=== PATIENT | male | born 1965 | race Caucasian/White ===

== ENCOUNTER 2018-05-22 14:44 | Emergency (ER) | payer SELFPAY ==
[~2018-05-22] VITALS: Ht 172.7 cm; Wt 70.3 kg
[2018-05-22 15:04] VITALS: BP 133/86; PULSE 87; RESP 18; TEMP 98.2; O2SAT 95
[2018-05-22] MEDS ORDERED: ORPHENADRINE INJ 60 MG/2 ML AMP IM ONE (16:15)
[2018-05-22] MEDS ORDERED: traMADol HCL 50 MG TAB PO ONE (16:15)
[2018-05-22] MEDS ORDERED: MEDR4PAK PO (16:18)
[2018-05-22] MEDS ORDERED: CYCL10TA PO (16:18)
[2018-05-22] MEDS ORDERED: NAPR500T2 PO (16:18)
--- NOTE | 2018-05-22 16:19 | PD ---
HPI Chief Complaint: Back/ Neck Pain or Injury Time Seen by Provider: 15:41 Travel History International Travel<30 days: No Contact w/Intl Traveler<30days: No Traveled to known affect area: No History of Present Illness HPI 52-year-old male presents to the emergency department with complaint of left lower back pain that radiates down his leg since yesterday after picking up a heavy object. He is also complaining of numbness and tingling from his back all the way down to his foot. Denies back pain like this before. Denies history of chronic back pain. Denies encopresis, incontinence, saddle anesthesias. Denies fever, vomiting, abdominal pain. Denies IV drug use or cancer. Denies loss of sensation, decreased range of motion, decreased strength to the affected extremity. Is ambulatory with a limp to the left lower extremity. Has been taking ibuprofen for symptom management. Rates pain 10/10 with sitting. Rates pain 5/10 when he lies down or stands up or better when he lays flat or stands up straight. Worse with sitting and movement. No primary care provider. Denies significant past medical history. Allergies to Toradol. Has no other medical complaints. No other modifying factors or associated signs and symptoms per [facility] Social History Alcohol Use: No Tobacco Use: Yes (1 ppd) Substance Use: Yes Allergies-Medications (Allergen,Severity, Reaction): Coded Allergies: No Known Allergies (Verified Allergy, Unknown, 05/22/18) Reported Meds & Prescriptions Reported Meds & Active Scripts Active Flexeril (Cyclobenzaprine HCl) 10 Mg Tab 10 Mg PO TID PRN Medrol Dosepak (Methylprednisolone) 4 Mg Dspk 4 Mg PO DIRECTED Per Pharmacist direction Naproxen 500 Mg Tab 500 Mg PO BID PRN Review of Systems Except as stated in HPI: all other systems reviewed are Neg Physical Exam Narrative GENERAL: Well-nourished, well-developed man patient, in no acute distress; afebrile, nontoxic-appearing SKIN: Warm and dry. HEAD: Atraumatic. Normocephalic. EYES: Pupils equal and round. No scleral icterus. No injection or drainage. ENT: Mucosa pink and moist. Airway patent. NECK: Trachea midline. CARDIOVASCULAR: Regular rate. RESPIRATORY: No accessory muscle use. GASTROINTESTINAL: Flat. MUSCULOSKELETAL: Bilateral lower extremities supple and non-tense with 2+ pedal pulses and sensory intact; with full range of motion and 5/5 strength; patient is missing 4 toes to the left foot and 3 toes to the right foot. 2+ DTRs bilaterally. Active dorsiflexion and extension of bilateral feet. Left straight leg raise is positive for low back pain. Ambulatory in room with a limp to the left lower extremity. Sitting up in bed at 90. No obvious deformities. No clubbing. No cyanosis. No edema. BACK: No midline point tenderness on palpation of the lumbar spine. Tenderness on palpation of left lumbar iliosacral area. No obvious deformities. NEUROLOGICAL: Awake and alert. Oriented 3. No obvious cranial nerve deficits. Motor grossly within normal limits. Normal speech. Moves all extremities. 5/5 strength to all extremities. Sensory intact. PSYCHIATRIC: Appropriate mood and affect; insight and judgment normal. Data Data Last Documented VS Vital Signs Date Time Temp Pulse Resp B/P (MAP) Pulse Ox O2 Delivery O2 Flow Rate FiO2 05/22/18 15:04 98.2 87 18 133/86 (102) 95 Orders Orders Tramadol (Ultram) (05/22/18 16:15) Orphenadrine Inj (Norflex Inj) (05/22/18 16:15) Ed Discharge Order (05/22/18 16:20) MDM Medical Decision Making Medical Screen Exam Complete: Yes Emergency Medical Condition: Yes Medical Record Reviewed: Yes Differential Diagnosis Low back strain, muscle strain, muscle spasm, sciatica, lumbar radiculopathy Narrative Course 52-year-old male with left-sided low back pain with left-sided sciatic and strain of the muscle of the lower back. Neuro exam is unremarkable. Denies encopresis, incontinence, saddle anesthesias. Denies IV drug use or cancer. No midline tenderness palpation of the lumbar spine. Patient ambulatory in the room with a limp to the left leg. Tramadol, Norflex administered in the ER. Naproxen, Flexeril, Medrol Dosepak prescribed for home. Instructed patient to follow up with primary care provider. Patient verbalizes understanding and agreement with treatment plan. Patient is medically cleared and stable for discharge. Discussed reasons to return to the emergency department. Patient agrees with treatment plan. The patients vital signs are stable and the patient is stable for outpatient follow-up and treatment. Patient discharged home, stable and in no acute distress. Diagnosis Primary Impression: Left-sided low back pain with sciatica Qualified Codes: M54.42 - Lumbago with sciatica, left side Additional Impression: Strain of muscle, fascia and tendon of lower back, initial encounter Referrals: [facility] Neurosurgeon Primary Care Physician Patient Instructions: Acute Low Back Pain (ED), General Instructions, Low Back Strain (ED), Lower Back Exercises (ED), Sciatica (ED) Additional Instructions: Tylenol or ibuprofen as directed and as needed for pain Flexeril as prescribed and as needed for muscle spasms Medrol Dosepak as prescribed Heating pad and/or ice to affected area to reduce pain Avoid aggravating activities; increase activity as tolerated Follow-up with primary care provider Return to emergency department immediately with worsening of symptoms Med/Other Pt SpecificInfo: Prescription(s) given Scripts Cyclobenzaprine (Flexeril) 10 Mg Tab 10 MG PO TID Y for MUSCLE SPASM, #30 TAB 0 Refills Prov: Hanna Burdick 05/22/18 Methylprednisolone Dosepak (Medrol Dosepak) 4 Mg Dspk 4 MG PO DIRECTED, #1 DSPK 0 Refills Per Pharmacist direction Prov: Hanna Burdick 05/22/18 Naproxen (Naproxen) 500 Mg Tab 500 MG PO BID Y for PAIN SCALE 1 TO 10, #20 TAB 0 Refills Prov: Hanna Burdick 05/22/18 Disposition: 01 DISCHARGE HOME Condition: Stable Hanna Burdick May 22, 2018 16:19
== END 2018-05-22 16:50 | disposition home or self-care (01) ==
LOC: NEPK 14:44
DX: M54.42 Lumbago with sciatica, left side (principal); S39.012A Strain of muscle, fascia and tendon of lower back, initial encounter; F17.200 Nicotine dependence, unspecified, uncomplicated; Z79.899 Other long term (current) drug therapy; X50.0XXA Overexertion from strenuous movement or load, initial encounter
CPT/HCPCS: 96372; 99283; J2360